=== PATIENT | female | born 1995 | race Caucasian/White ===

== ENCOUNTER 2017-03-26 16:31 | Emergency (ER) | payer MEDICAID ==
--- NOTE | 2017-03-26 16:49 | ED Physician Chart ---
Chief Complaint/HPI - Patient Information Date Seen:: 03/26/17 Time Seen:: 16:44 Chief Complaint:: alt ms History of Present Illness:: pt lives w mom...says her mom has been concerned and wanted to have her psych admitted x last 3 days for unusual behavior. pt presents to ED after she wandered over to neighbors house and was acting bizarrely. pt has frequent wild gesiculations of b hands and flights of ideas.. she is talking about bizarre ideas and rapid flow of subjects. she denies pain or recent illness. she denies any prior psych therapy or admission. she denies any drug or etoh ingestion. Allergies:: Allergies Allergy/AdvReac Type Severity Reaction Status Date / Time No Known Allergies Allergy Verified 09/04/16 18:45 Historian:: Patient Review of Systems - Review of Systems General/Constitutional: No fever, No chills, No weight loss, No weakness, No diaphoresis, No edema, No loss of appetite Skin: No skin lesions, No rash, No bruising Head: No headache, No light-headedness Eyes: No loss of vision, No pain, No diplopia ENT: No earache, No nasal drainage, No sore throat, No tinnitus Neck: No neck pain, No swelling, No thyromegaly, No stiffness, No mass noted Cardio Vascular: No chest pain, No palpitations, No PND, No orthopnea, No edema Pulmonary: No SOB, No cough, No sputum, No wheezing GI: No nausea, No vomiting, No diarrhea, No pain, No melena, No hematochezia, No constipation, No hematemesis G/U: No dysuria, No frequency, No hematuria Musculoskeletal: No bone or joint pain, No back pain, No muscle pain Endocrine: No polyuria, No polydipsia Psychiatric: No prior psych history (???), No depression, Anxiety, No suicidal ideation, Other (mod agitation) Hematopoietic: No bruising, No lymphadenopathy Allergic/Immuno: No urticaria, No angioedema Neurological: No syncope, No focal symptoms, No weakness, No paresthesia, No headache, No seizure, No dizziness, Confusion, No vertigo Past Medical History - Past Medical History Past Medical History: No significant medical hx (pt denies pmh...psych hx seems likely) Social History: No Drug Use Psychiatricy History: Bipolar, Other (pt denies pmh...psych hx seems likely) Medication: Reviewed Family Medical History - Family Member Mother History Unknown: Yes Physical Exam - Physical Examination General/Constitutional: Awake, Well-developed, well-nourished, Alert, No distress, GCS 15, Non-toxic appearing, Ambulatory Head: Atraumatic Eyes: Lids, conjuctiva normal, PERRL, EOMI Skin: Nl inspection, No rash, No skin lesions, No ecchymosis, Well hydrated, No lymphadenopathy ENMT: External ears, nose nl, Nasal exam nl, Lips, teeth, gums nl Neck: Nontender, Full ROM w/o pain, No JVD, No nuchal rigidity, No bruit, No mass, No stridor Respiratory: Nl effort/Exclusion, Clear to Auscultation, No Wheeze/Rhonchi/Rales Cardio Vascular: RRR, No murmur, gallop, rubs, NL S1 S2 GI: No tenderness/rebounding/guarding, No organomegaly, No hernia, Normal BS's, Nondistended, No mass/bruits, No McBurney tenderness : No CVA tenderness Extremities: No tenderness or effusion, Full ROM, normal strength in all extremities, No edema, Normal digits & nails Neuro/Psych: Alert/oriented, DTR's symmetric, Normal sensory exam, Normal motor strength, Mood normal, Normal gait, No focal deficits Other Neuro/Psych comments:: anxious somewhat. pt gesiculates widely and constantly w b hands....strange behavior...?ingestion hr elevation noted. Misc: normal gait, Normal back, No paraspinal tenderness Labs/Radiology/EKG Results - Lab Results Results: Laboratory Tests 03/26/17 03/26/17 03/26/17 16:56 16:56 16:56 WBC 8.5 RBC 5.06 Hgb 15.0 Hct 43.7 MCV 86.3 MCH 29.6 MCHC Differential 34.3 RDW 12.6 Plt Count 217 MPV 9.3 Neutrophils % 82.6 H Lymphocytes % 12.9 L Monocytes % 3.5 Eosinophils % 0.5 Basophils % 0.5 Sodium 139 Potassium 3.4 L Chloride 106 Carbon Dioxide 28.2 Anion Gap 8.2 BUN 13 Creatinine 0.9 Est GFR ( Amer) > 60.0 Est GFR (Non-Af Amer) > 60.0 BUN/Creatinine Ratio 14.4 Glucose 95 Calcium 10.3 Total Bilirubin 0.7 AST 15 ALT 13 Alkaline Phosphatase 69 Total Protein 7.5 Albumin 4.4 Globulin 3.1 Albumin/Globulin Ratio 1.4 Triglycerides 74 Cholesterol 118 LDL Cholesterol Direct 54 L HDL Cholesterol 53 TSH 0.34 Serum , Qual Urine Test Salicylates < 25.0 L Acetaminophen < 10.0 L Ethyl Alcohol < 10 03/26/17 03/26/17 16:56 16:56 WBC RBC Hgb Hct MCV MCH MCHC Differential RDW Plt Count MPV Neutrophils % Lymphocytes % Monocytes % Eosinophils % Basophils % Sodium Potassium Chloride Carbon Dioxide Anion Gap BUN Creatinine Est GFR ( Amer) Est GFR (Non-Af Amer) BUN/Creatinine Ratio Glucose Calcium Total Bilirubin AST ALT Alkaline Phosphatase Total Protein Albumin Globulin Albumin/Globulin Ratio Triglycerides Cholesterol LDL Cholesterol Direct HDL Cholesterol TSH Serum , Qual NEGATIVE Urine Test NEGATIVE Salicylates Acetaminophen Ethyl Alcohol - Radiology Results Results: ct head- nad ED Septic Shock - . Is Septic Shock (SBP<90, OR Lactate>4 mmol\L) present?: No Reassessment (Disposition) - Reassessment Reassessment:: (7;49p) pt is stable w same inappropriately smiling and gesticulating behavior. ct head was ordered but hasnt been completed due to pt not giving urine for hcg yet. will order hcg by blood work. mom called and spoke to staff. mom says pt has a hx of bipolar dz and has been off her meds lately. no suicidal or homicidal behavior from what we have heard. not known to be a obvious danger to self. 8;10p approx. pt seen by Maycol from psych dept. He has placed pt on a psych hold based on his conversation w her...he is concerned that she is smiling inappropriately and stating she thinks her mom is trying to kill her so she is thinking of attacking her mom first. awaiting staff to find placement for pt... 9;17p head ct ok...pt is officially medically clear for psych placement 5;35a as of now pt ok. was agitated earlier and given haldol. awaiting placement..staff hopeful for [facility] later this am.. plan to sign out case to shayna sorensen at 7am. Reassessment Condition:: Unchanged - Diagnosis Diagnosis:: 1 bipolar w acute manic psychosis and delusional thinking 2 homicidal ideation - Patient Disposition Discharge/Transfer:: Acute Care (other hosp) (psych facility..[facility]) Condition at Disposition:: Unchanged
[2017-03-26] MEDS ORDERED: Sodium Chloride 0.9% 1,000 ML IV ONE (16:51)
[2017-03-26 17:03] LABS: % BASOPHILS 0.5 % (0.0-2.0); % EOSINOPHILS 0.5 % (0.0-5.0); % LYMPHOCYTES 12.9 % (20.0-50.0); % MONOCYTES 3.5 % (2.0-10.0); % NEUTROPHILS 82.6 % (40.0-80.0); HEMATOCRIT 43.7 % (35.0-45.0); MEAN CELL VOLUME 86.3 fl (81-100); MEAN CORPUSCULAR HEMOGLOBIN 29.6 pg (27.0-31.0); MEAN CORPUSCULAR HGB CONC 34.3 pg (28.0-36.0); MEAN PLATELET VOLUME 9.3 fl; NEUTROPHILE ABSOLUTE 7.1 Th/cmm (1.8-8.0); PLATELET COUNT 217 Th/cmm (150-400); RED BLOOD COUNT 5.06 Mil/cmm (3.80-5.10); RED CELL DISTRIBUTION WIDTH 12.6 % (11.5-20.0); WHITE BLOOD COUNT 8.5 Th/cmm (4.8-10.8)
[2017-03-26 17:24] LABS: ACETAMINOPHEN < 10.0 ug/mL (10.0-30.0); ALB/GLOB RATIO 1.4 (1.0-1.8); ALKALINE PHOSPHATASE 69 U/L (34-104); ANION GAP 8.2 (7.0-16.0); BILIRUBIN,TOTAL 0.7 mg/dL (0.3-1.0); BUN - UREA NITROGEN 13 mg/dL (7-25); BUN/CREATININE RATIO 14.4; CALCIUM SERUM 10.3 mg/dL (8.6-10.3); CARBON DIOXIDE 28.2 mEq/L (21.0-31.0); CHLORIDE 106 mEq/L (98-107); CHOLESTEROL 118 mg/dL (<200); CREATININE - SERUM 0.9 mg/dL (0.6-1.2); GLUCOSE 95 mg/dL (70-105); POTASSIUM SERUM 3.4 mEq/L (3.5-5.1); SGOT 15 U/L (13-39); SGPT/ALT 13 U/L (7-52); SODIUM SERUM 139 mEq/L (136-145); TRIGLYCERIDES 74 mg/dL (<150)
[2017-03-26 20:29] LABS: URINE BILIRUBIN NEGATIVE (NEGATIVE); URINE BLOOD NEGATIVE (NEGATIVE); URINE COLOR YELLOW; URINE GLUCOSE (UA) NEGATIVE (NEGATIVE); URINE KETONE NEGATIVE (NEGATIVE); URINE PROTEIN NEGATIVE (NEGATIVE); URINE UROBILINOGEN 0.2 E.U./dL (0.2 - 1.0)
[2017-03-26 20:30] LABS: URINE BACTERIA MODERATE /hpf (NONE SEEN); URINE EPITHELIAL CELLS MODERATE /lpf (FEW); URINE RBC 0-2 /hpf (0-5)
[2017-03-26 21:54] LABS: AMPHETAMINE URINE POSITIVE (NEGATIVE); BARBITURATES URINE NEGATIVE (NEGATIVE); METHADONE URINE NEGATIVE (NEGATIVE)
[2017-03-27] MEDS ORDERED: Haloperidol Lactate 5 mg/mL 1mL Vial ONE (01:12)
[2017-03-27] MEDS: Haloperidol Lactate 5 mg/mL 1mL Vial IM STA ×2 (01:14→06:45)
--- NOTE | 2017-03-27 03:15 | Admit Criteria Form ---
Admit Criteria Forms - Admit Criteria Diagnosis: PSYCHIATRIC DISORDERS (Place 'X' for any and all applicable criteria): Ongoing inpatient care may be needed for 1 or more of the following(1)(2)(3)(4)( 6)(7)(8): [ ]I. Danger to self or others not manageable at lower level of care. [ ]II. Grave disability (eg, inability to perform self care necessary at lower level of care) [ ]III. Agitation or inappropriate behavior interfering with care for primary condition (eg, attempting to discontinue lines or drains prematurely, unable to cooperate with respiratory care) [X]IV. Severe disability or disorder indicated by ALL of the following: [X]a) Severe behavioral health disorder-related symptoms or condition indicated by 1 or more of the following: [ ]i) Severe problem with cognition, memory, judgment, or impulse control [X]ii) Severe clinical manifestations (eg, hallucinations, delusions, other acute psychotic symptoms, tu, extreme agitation or anxiety) [X]b) Patient management at lower level of care is not feasible until acute intervention or modification is initiated. Extended stay beyond goal length of stay for the primary condition may be needed until ALLof the following are present(1)(2)(3)(4)(7)00)(23): [ ]a) Danger to self or others is absent or manageable at lower level of care [ ]b) Behavior crisis management, including physical or chemical restraints, is required and is not available at a lower level of care. [ ]c) Behavioral symptoms (e.g., agitation, somnolence, inappropriate behavior) are present, and are not manageable at a lower level of care. [ ]d) Patient cannot understand follow-up treatment and crisis plan. [ ]e) Provider and supports are sufficiently available at lower level of care. [ ]f) Patient can participate (e.g., verify absence of plan for harm) and is in needed of monitoring. The [facility] content [facility] by [facility] has been revised. The portions of the content which have been revised are identified through the use of italic text or in bold, and [facility] has neither reviewed nor approved the modified material. All other unmodified content is copyright [facility]. Please see references footnoted in the original [facility] edition 2017
--- NOTE | 2017-03-27 10:04 | Diagnostic Imaging Report ---
CT scan of the abdomen and pelvis without intravenous contrast History: Altered mental status, stroke/CVA Total DLP equals 505 CTDI equals 29.3 Axial sections were obtained from the xiphoid process down to the pubic symphysis. The liver demonstrates a normal size and contour. No focal lesions are seen. The spleen appears normal. No abnormalities are seen in the region of the pancreas. The kidneys appear normal bilaterally. The exam of the pelvis demonstrates preservation of normal fat planes. No abnormal soft tissue masses. No abnormal fluid collections. Impression: No acute abnormalities
== END 2017-03-27 09:22 | disposition short-term general hospital (02) ==
LOC: ER 16:31
DX: F31.2 Bipolar disorder, current episode manic severe with psychotic features (principal); R45.850 Homicidal ideations
CPT/HCPCS: 36415-UA; 70450-TC; 80053-TC; 80061-TC; 80307; 80320-TC; 80329-TC; 81001-TC; 81025-TC; 84443-TC; 84703-TC; 85025-TC; 86592-TC; 93005; J1630; Z7610